=== PATIENT | female | born 1990 | race Caucasian/White ===

== ENCOUNTER → 2020-02-15 | Outpatient (CLI) | payer BC, OTHER | END | disposition home or self-care (01) | LOC: LABWHC1 14:25 | PROVIDERS: ATTEND Obstetrics & Gynecology | DX: Z11.59 Encounter for screening for other viral diseases (principal) ==

== ENCOUNTER 2020-02-17 06:00 | Inpatient (IN) | payer BC, OTHER ==
[2020-02-17] MEDS ORDERED: CARBOPROST TROMETHAMINE 250 MCG/ML 1 ML AMP IM PRN (06:09)
[2020-02-17] MEDS ORDERED: TERBUTALINE 1 MG/ML VIAL SQ PRN (06:09)
[2020-02-17] MEDS ORDERED: OXYTOCIN 10 UNIT/ML 1 ML VIAL IM PRN (06:09)
[2020-02-17] MEDS ORDERED: METHYLERGONOVINE 0.2 MG/ML 1 ML AMP IM PRN (06:09)
[2020-02-17] MEDS ORDERED: OXYTOCIN 30 UNITS/500 ML NS 30 UNIT in SALINE 1 500ML.BAG IV SCH (06:15)
[2020-02-17] MEDS: LACTATED RINGERS 1,000 ML IV SCH ×2 (06:33→11:07)
[2020-02-17 06:43] LABS: Basophils % (A) 0 %; Eosinophils # (A) 0.1 k/uL (0-0.7); Eosinophils % (A) 2 %; HCT 32.7 % (34.0-46.0); HGB 11.2 gm/dL (11.4-16.0); Lymphocytes # (A) 1.5 k/uL (1.0-4.8); Lymphocytes % (A) 21 %; MCH 28.3 pg (25.0-35.0); MCHC 34.3 g/dL (31.0-37.0); MCV 82.6 fL (80.0-100.0); Mean Platelet Volume 7.5; Monocytes # (A) 0.3 k/uL (0-1.0); Monocytes % (A) 4 %; Neutrophils # (A) 4.9 k/uL (1.3-7.7); Neutrophils % (A) 71 %; Platelet Count 232 k/uL (150-450); RBC 3.96 m/uL (3.80-5.40); RDW 14.4 % (11.5-15.5); WBC 6.9 k/uL (3.8-10.6)
[2020-02-17] MEDS: BUTORPHANOL 1 MG/ML 1 ML VIAL IV PRN ×2 (11:00→13:15)
--- NOTE | 2020-02-17 15:54 | P.HPOB ---
History of Present Illness H&P Date: 02/17/20 Chief Complaint: at 39 weeks gestation This is a 29-year-old 3 para 2002 woman with an estimated due date of 02/23/2020 who presents at 39+ weeks gestation for elective induction of labor. Her has been uncomplicated. She has been monitoring home blood pressures however has not had any significant -induced hypertension. She does have a history of PIH in previous pregnancies. She was followed early in the for a low-lying placenta which did resolve by 32 weeks. She's had no vaginal bleeding. On admission her cervix is 3 cm dilated, 50% effaced and the vertex is in the -4 station anterior behind the pubic symphysis. Next On obstetric history: 2013 and term of 7 lbs. 0 oz. male, PIH. 2014 term of 8 lbs. 13 oz. male infant uncomplicated. Laboratory data blood type B positive, antibody screen negative, rubella immune, VDRL nonreactive, hep Shy surface antigen negative, HIV negative, gonorrhea and clinic cultures negative, glucose tones testing within normal limits, hemoglobin A1c 4.3, group B strep negative. Review of Systems All systems: negative Past Medical History Past Medical History: No Reported History Additional Past Medical History / Comment(s): HTN "a few years ago"- resolved, not currently medicated History of Any Multi-Drug Resistant Organisms: None Reported Past Surgical History: Adenoidectomy Past Anesthesia/Blood Transfusion Reactions: No Reported Reaction Past Psychological History: No Psychological Hx Reported Smoking Status: Never smoker Past Alcohol Use History: None Reported Past Drug Use History: None Reported - Past Family History Father Family Medical History: Hypertension Mother Family Medical History: Hypertension Additional Family Medical History / Comment(s): type 2 diabetes Medications and Allergies Home Medications Medication Instructions Recorded Confirmed Type Pnv,Calcium 72/Iron/Folic Acid 1 tab PO DAILY 02/17/20 02/17/20 History [ Plus Tablet] Allergies Allergy/AdvReac Type Severity Reaction Status Date / Time No Known Allergies Allergy Verified 02/17/20 06:06 Exam Vital Signs Temp Pulse Resp BP Pulse Ox 02/17/20 07:30 97.0 F L 86 16 140/80 99 Intake and Output 02/17/20 02/17/20 02/17/20 06:59 14:59 22:59 Other: # Voids 1 Weight 110.677 kg 110.677 kg On admission the cervix is 3 cm dilated 50% effaced and was remarkably anterior on and behind the pubic symphysis. Artificial rupture of membranes is achieved by use of the scalp electrode and clear fluid is noted. She is irregularly merari on admission and heart tones are category 1. Results Result Diagrams: 02/17/20 06:30 Abnormal Lab Results - Last 24 Hours (Table) 02/17/20 Range/Units 06:30 Hgb 11.2 L (11.4-16.0) gm/dL Hct 32.7 L (34.0-46.0) % Assessment and Plan (1) 39 weeks gestation of Current Visit: Yes Status: Acute Code(s): Z3A.39 - 39 WEEKS GESTATION OF SNOMED Code(s): 80948674 (2) Obesity Current Visit: No Status: Acute Code(s): E66.9 - OBESITY, UNSPECIFIED SNOMED Code(s): 269915707 Plan: 29-year-old 3 para 2 woman admitted at 39+ weeks gestation on for induction of labor with a favorable cervix. has been uncomplicated. She will undergo Pitocin induction of labor with artificial rupture of membranes. She is group B strep negative and Rh+. She may have an epidural anesthetic upon request in active labor.
[2020-02-17] MEDS ORDERED: diphenhydrAMINE 50 MG/ML 1 ML VIAL IVP PRN ×2 (15:57)
[2020-02-17] MEDS ORDERED: diphenhydrAMINE 50 MG CAP PO PRN (15:57)
[2020-02-17] MEDS ORDERED: diphenhydrAMINE 25 MG CAP PO PRN (15:57)
[2020-02-17] MEDS ORDERED: BENZOCAINE/MENTHOL SPRAY 1 GM/SPRAY AEROSOL TOPICAL PRN (15:57)
[2020-02-17] MEDS ORDERED: SIMETHICONE 80 MG CHEWABLE PO PRN (15:57)
[2020-02-17] MEDS ORDERED: WITCH HAZEL 1 EACH MED..PAD TOPICAL PRN (15:57)
[2020-02-17] MEDS ORDERED: LANOLIN CREAM 5 GM TUBE TOPICAL PRN (15:57)
[2020-02-17] MEDS ORDERED: HYDROCORTISONE 2.5% RECTAL CREAM 30 GM TUBE RECTAL PRN (15:57)
[2020-02-17] MEDS ORDERED: ZOLPIDEM 5 MG TAB PO PRN (15:57)
[2020-02-17] MEDS ORDERED: ACETAMINOPHEN TAB 325 MG TAB PO PRN (15:57)
--- NOTE | 2020-02-17 15:57 | P.PROBDLV ---
Vaginal Delivery Note - . Vaginal Delivery Note: Findings: Female in the vertex left occiput anterior position with Apgars of 7 at 1 minute and 9 at 5 minutes weighing 7 lbs. 1 oz. Second-degree midline episiotomy. EBL proximally 500 mL's. Delivery summary: This is a 29-year-old 3 para 2 woman who presented at 39+ weeks gestation for elective induction of labor at term. Following admission she underwent a Pitocin induction of labor with artificial rupture of membranes. She was 3 cm dilated on admission at approximately 7:30 AM. She did enter active labor and when she reached 5 cm dilated she requested an epidural anesthetic. Unfortunately after multiple times on epidural could not be adeq uately placed. The patient then received Stadol for analgesia. She reached complete cervical dilation by approximately 1520. She had deep variable heart rate decelerations on entering into the second stage. She pushed with excellent maternal effort. She had a terminal bradycardia down to the 70 bpm. The perineum was infused with lidocaine and a midline episiotomy was cut this facilitated delivery of the vertex with the next maternal effort. A nuchal cord 1 was reduced. The anterior followed by the posterior shoulders were then delivered onto the field. On limits had spontaneous cry upon delivery. Nose and mouth were bulb suctioned. was placed on the maternal abdomen where the cord was clamped and cut. Apgars were 7 at 1 minute and 9 at 5 minutes and weight was 7 lbs. 1 oz. The patient did have some on uterine atony and bleeding well waiting for the placenta to deliver. Active management of the third stage was undertaken and Pitocin was infused. The placenta was delivered after an approximately 5 minute third stage of labor. Uterus was massaged and the low uterine segment was cleared of clot and debris. Good uterine tone was then noted. The perineum was inspected and a irregularly-shaped second-degree midline episiotomy was noted. This was repaired with 3-0 Vicryl suture after infusion of the laceration with more lidocaine. The rest of the vagina and cervix were inspected and no further lacerations were noted. The uterus was massaged and she did have some mild atony that again did resolve with bimanual massage. Total EBL is approximate 500 mL's. Both mother and were doing well post delivery in the room.
[2020-02-17] MEDS: LIDOCAINE 0.5% (PF) 5 MG/ML (50 ML SDV) SQ PRN ×2 (15:58→15:59)
[2020-02-17] MEDS ORDERED: OXYTOCIN 20 UNITS/1000 ML NS 1,000 ML IV SCH (16:00)
[2020-02-17] MEDS: IBUPROFEN 600 MG TAB PO PRN (19:09)
[2020-02-17] MEDS: SENNOSIDES-DOCUSATE SODIUM 1 EACH TAB PO SCH (22:07)
[2020-02-18 07:04] LABS: Basophils % (A) 0 %; Eosinophils # (A) 0.1 k/uL (0-0.7); Eosinophils % (A) 1 %; HCT 29.2 % (34.0-46.0); HGB 9.8 gm/dL (11.4-16.0); Lymphocytes # (A) 1.2 k/uL (1.0-4.8); Lymphocytes % (A) 14 %; MCH 28.4 pg (25.0-35.0); MCHC 33.4 g/dL (31.0-37.0); MCV 84.9 fL (80.0-100.0); Mean Platelet Volume 7.4; Monocytes # (A) 0.3 k/uL (0-1.0); Monocytes % (A) 4 %; Neutrophils # (A) 6.9 k/uL (1.3-7.7); Neutrophils % (A) 80 %; Platelet Count 191 k/uL (150-450); RBC 3.44 m/uL (3.80-5.40); RDW 14.3 % (11.5-15.5); WBC 8.6 k/uL (3.8-10.6)
[2020-02-18] MEDS: IBUPROFEN 600 MG TAB PO PRN (07:25)
--- NOTE | 2020-02-18 08:43 | P.DS ---
Providers Date of admission: 02/17/20 06:00 Expected date of discharge: 02/18/20 Attending physician: Jamaica Magaña Primary care physician: Stated None - Discharge Diagnosis(es) (1) 39 weeks gestation of Current Visit: Yes Status: Acute (2) Obesity Current Visit: No Status: Acute (3) Normal spontaneous vaginal delivery Current Visit: No Status: Acute (4) Perineal laceration with delivery, second degree Current Visit: No Status: Acute (5) Nuchal cord Current Visit: Yes Status: Acute Hospital Course: This is a 29-year-old 3 now para 3 woman who is admitted at 39+ weeks gestation for elective induction of labor with a favorable cervix. Following admission she underwent Pitocin induction of labor with artificial rupture of membranes. She had failed attempts at epidural anesthetic placement but did receive Stadol analgesia during her labor. She went on to deliver a liveborn female infant weighing 7 lbs. 1 oz. with Apgars of 7 at 1 minute and 9 at 5 minutes. She had some moderate uterine atony following delivery that was managed with bimanual uterine massage and Pitocin intravenously. This did resolve. Her blood loss is approximately 500 mL's. Her vital signs remained stable throughout the her postdelivery timeframe. By the morning of day #1 her hemoglobin was 9.8 and vital signs were stable. She had minimal lochia and her uterus was firm. She was bottlefeeding without difficulty, ambulating and voiding without difficulty. She was therefore discharged home with routine instructions for care and follow-up. Procedures: Normal spontaneous vaginal delivery Repair of second-degree perineal laceration Patient Condition at Discharge: Good Plan - Discharge Summary New Discharge Prescriptions: No Action Pnv,Calcium 72/Iron/Folic Acid [ Plus Tablet] 1 tab PO DAILY Discharge Medication List Pnv,Calcium 72/Iron/Folic Acid [ Plus Tablet] 1 tab PO DAILY 02/17/20 [History] Follow up Appointment(s)/Referral(s): Jamaica Magaña MD [STAFF PHYSICIAN] - 6 Weeks Activity/Diet/Wound Care/Special Instructions: Follow-up in the office in 6 weeks . Call with any concerning signs or symptoms including heavy vaginal bleeding, severe abdominal pain, fever greater than 101, swelling or redness of the lower extremities, foul vaginal discharge, or signs of depression. Nothing in the vagina for 6 weeks after delivery, specifically no intercourse. Discharge Disposition: HOME SELF-CARE
[2020-02-18] MEDS: SENNOSIDES-DOCUSATE SODIUM 1 EACH TAB PO SCH ×2 (17:19→19:57)
--- NOTE | 2020-02-19 08:05 | P.PNOBGVD ---
Subjective - Subjective Principal diagnosis: PPD 2 Interval history: Patient did well overnight. Infant required extra monitoring secondary to an elevated bilirubin level. Patient states she is involuting and voiding without difficulty. She is tolerating a regular diet without nausea or vomiting. She states her lochia is moderate. Patient does have a history of elevated blood pressures with prior pregnancies blood pressures this morning 140s over 80s., With recheck being 130s over 80s. She denies any symptoms of preeclampsia. Patient reports: Reports appetite normal, Reports voiding normally, Reports pain well controlled, Reports ambulating normally [place]: doing well Objective - Latest Vital Signs Latest vital signs: Vital Signs Temp Pulse Resp BP Pulse Ox 02/19/20 00:39 97.7 F 85 14 132/70 99 02/18/20 17:45 98.1 F 94 18 130/80 99 - Exam Extremities: Present: edema Abdomen: Present: normal appearance, soft Uterus: Present: normal, firm Assessment and Plan (1) 39 weeks gestation of Current Visit: Yes Status: Acute Code(s): Z3A.39 - 39 WEEKS GESTATION OF SNOMED Code(s): 83155939 (2) Normal spontaneous vaginal delivery Current Visit: No Status: Acute Code(s): O80 - ENCOUNTER FOR FULL-TERM UNCOMPLICATED DELIVERY SNOMED Code(s): 98542372 Plan: Will plan discharge this morning, with follow-up with Dr. Magaña in 1 week for blood pressure check. Routine instructions are given.
[2020-02-19 08:11] VITALS: BP 130/80; PULSE 91; RESP 18; TEMP 98
== END 2020-02-19 11:12 | disposition home or self-care (01) | DRG 807 ==
LOC: 4FBP 06:00
PROVIDERS: ADMIT Obstetrics & Gynecology; ATTEND Obstetrics & Gynecology
PROC: 10E0XZZ Delivery of Products of Conception, External Approach (ICD-10-PCS; principal; 2020-02-17)
PROC: 10907ZC Drainage of Amniotic Fluid, Therapeutic from Products of Conception, Via Natural or Artificial Opening (ICD-10-PCS; principal; 2020-02-17)
PROC: 0KQM0ZZ Repair Perineum Muscle, Open Approach (ICD-10-PCS; principal; 2020-02-17)
PROC: 0W8NXZZ Division of Female Perineum, External Approach (ICD-10-PCS; principal; 2020-02-17)
PROC: 3E033VJ Introduction of Other Hormone into Peripheral Vein, Percutaneous Approach (ICD-10-PCS; principal; 2020-02-17)
DX: O13.4 Gestational [pregnancy-induced] hypertension without significant proteinuria, complicating childbirth (principal); Z37.0 Single live birth; O99.214 Obesity complicating childbirth; E66.9 Obesity, unspecified; O69.81X0 Labor and delivery complicated by cord around neck, without compression, not applicable or unspecified; O70.1 Second degree perineal laceration during delivery; O72.1 Other immediate postpartum hemorrhage; O76 Abnormality in fetal heart rate and rhythm complicating labor and delivery; O99.89 Other specified diseases and conditions complicating pregnancy, childbirth and the puerperium; R00.1 Bradycardia, unspecified; Z3A.39 39 weeks gestation of pregnancy; Z82.49 Family history of ischemic heart disease and other diseases of the circulatory system; Z83.3 Family history of diabetes mellitus
CPT/HCPCS: 85025; 86850; 86900; 86901

== ENCOUNTER 2020-03-19 20:16 | Inpatient (IN) | payer BC, OTHER ==
--- NOTE | 2020-03-19 20:47 | ED ---
Back Pain HPI - General Chief Complaint: Back Pain/Injury Stated Complaint: L Back Pain Time Seen by Provider: 03/19/20 20:39 Source: patient Limitations: no limitations - History of Present Illness Initial Comments: Patient is a 29-year-old female presenting to the emergency department with a chief complaint of back pain. Patient stated the back pain started 3 days ago in the right paraspinal thoracic region and has since migrated to the opposite side. Patient states the pain is exacerbated when taking full, deep breaths. Patient reports she was discharged from a hospital exactly one month ago after given . Patient also reports the pain is exacerbated with left and right rotation. Denies any chest pain was states she does get winded due to pain. Reports taking Tylenol and Motrin for the pain which has been able to keep either control. Denies any radiation of the pain. Denies any night sweats or chills. Denies previous history of DVT or PE. - Related Data Home Medications Medication Instructions Recorded Confirmed Acetaminophen [Tylenol Extra 1,000 mg PO Q8H PRN 03/19/20 03/19/20 Strength] Ibuprofen [Motrin Ib] 400 mg PO Q8H PRN 03/19/20 03/19/20 Labetalol HCl 100 mg PO Q8H PRN 03/19/20 03/19/20 Allergies Allergy/AdvReac Type Severity Reaction Status Date / Time No Known Allergies Allergy Verified 03/19/20 22:52 Review of Systems ROS Statement: Those systems with pertinent positive or pertinent negative responses have been documented in the HPI. ROS Other: All systems not noted in ROS Statement are negative. Past Medical History Past Medical History: No Reported History Additional Past Medical History / Comment(s): HTN "a few years ago"- resolved, not currently medicated History of Any Multi-Drug Resistant Organisms: None Reported Past Surgical History: Adenoidectomy Past Anesthesia/Blood Transfusion Reactions: No Reported Reaction Past Psychological History: No Psychological Hx Reported Smoking Status: Never smoker Past Alcohol Use History: Occasional Past Drug Use History: None Reported - Past Family History Father Family Medical History: Hypertension Mother Family Medical History: Hypertension Additional Family Medical History / Comment(s): type 2 diabetes General Exam Limitations: no limitations General appearance: alert, in no apparent distress Head exam: Present: atraumatic, normocephalic, normal inspection Eye exam: Present: normal appearance, PERRL, EOMI Pupils: Present: normal accommodation ENT exam: Present: normal exam, normal oropharynx, mucous membranes moist Neck exam: Present: normal inspection, full ROM. Absent: tenderness Respiratory exam: Present: normal lung sounds bilaterally. Absent: respiratory distress, wheezes, chest wall tenderness Cardiovascular Exam: Present: regular rate, normal rhythm, normal heart sounds GI/Abdominal exam: Present: soft. Absent: distended, tenderness, guarding Extremities exam: Present: normal inspection, full ROM, normal capillary refill, other Back exam: Present: normal inspection, full ROM, CVA tenderness (L). Absent: tenderness Neurological exam: Present: alert, oriented X3, normal gait Psychiatric exam: Present: normal affect, normal mood Skin exam: Present: warm, dry, intact, normal color Course Vital Signs 03/19/20 03/19/20 20:35 22:00 Temperature 97.8 F 96.9 F L Pulse Rate 115 H 98 Respiratory 20 18 Rate Blood Pressure 164/93 140/82 O2 Sat by Pulse 100 100 Oximetry Medical Decision Making - Medical Decision Making Patient is a 29-year-old female presenting to emergency Department with chief complaint of back pain. On exam patient appears to have some left thoracic back pain. This appears to pleuritic in nature. Patient has elevated d-dimer. CTA reveals multiple, bilateral lower lobe emboli. Bilateral pneumonia also noted. Covid testing pending. Patient will be admitted for further medical management. UA also appears to be positive for urinary tract infection. Patient started on high intensity heparin. Patient will be admitted for further medical management. Case discussed with physician, Dr Vargas Admitting physician is - Lab Data Result diagrams: 03/19/20 22:36 03/19/20 22:36 Lab Results 03/19/20 03/19/20 03/19/20 Range/Units 21:10 21:10 21:22 WBC (3.8-10.6) k/uL RBC (3.80-5.40) m/uL Hgb (11.4-16.0) gm/dL Hct (34.0-46.0) % MCV (80.0-100.0) fL MCH (25.0-35.0) pg MCHC (31.0-37.0) g/dL RDW (11.5-15.5) % Plt Count (150-450) k/uL Neutrophils % % Lymphocytes % % Monocytes % % Eosinophils % % Basophils % % Neutrophils # (1.3-7.7) k/uL Lymphocytes # (1.0-4.8) k/uL Monocytes # (0-1.0) k/uL Eosinophils # (0-0.7) k/uL Basophils # (0-0.2) k/uL D-Dimer 3.74 H (<0.60) mg/L FEU Sodium (137-145) mmol/L Potassium (3.5-5.1) mmol/L Chloride (98-107) mmol/L Carbon Dioxide (22-30) mmol/L Anion Gap mmol/L BUN (7-17) mg/dL Creatinine (0.52-1.04) mg/dL Est GFR (CKD-EPI)AfAm (>60 ml/min/1.73 sqM) Est GFR (CKD-EPI)NonAf (>60 ml/min/1.73 sqM) Glucose (74-99) mg/dL Calcium (8.4-10.2) mg/dL Total Bilirubin (0.2-1.3) mg/dL AST (14-36) U/L ALT (4-34) U/L Alkaline Phosphatase (38-126) U/L Troponin I (0.000-0.034) ng/mL NT-Pro-B Natriuret Pep pg/mL Total Protein (6.3-8.2) g/dL Albumin (3.5-5.0) g/dL Urine Color Yellow Urine Appearance Cloudy H (Clear) Urine pH 6.0 (5.0-8.0) Ur Specific [place] 1.036 H (1.001-1.035) Urine Protein 1+ H (Negative) Urine Glucose (UA) Negative (Negative) Urine Ketones Negative (Negative) Urine Blood Trace H (Negative) Urine Nitrite Negative (Negative) Urine Bilirubin Negative (Negative) Urine Urobilinogen <2.0 (<2.0) mg/dL Ur Leukocyte Esterase Large H (Negative) Urine RBC 8 H (0-5) /hpf Urine WBC 50 H (0-5) /hpf Ur Squamous Epith Cells 9 H (0-4) /hpf Urine Bacteria Rare H (None) /hpf Urine Mucus Few H (None) /hpf Urine HCG, Qual Not Detected (Not Detectd) 03/19/20 03/19/20 03/19/20 Range/Units 22:34 22:36 22:36 WBC 9.5 (3.8-10.6) k/uL RBC 4.51 (3.80-5.40) m/uL Hgb 11.7 (11.4-16.0) gm/dL Hct 37.1 (34.0-46.0) % MCV 82.1 (80.0-100.0) fL MCH 26.0 (25.0-35.0) pg MCHC 31.6 (31.0-37.0) g/dL RDW 14.6 (11.5-15.5) % Plt Count 272 (150-450) k/uL Neutrophils % 73 % Lymphocytes % 17 % Monocytes % 4 % Eosinophils % 5 % Basophils % 0 % Neutrophils # 7.0 (1.3-7.7) k/uL Lymphocytes # 1.6 (1.0-4.8) k/uL Monocytes # 0.4 (0-1.0) k/uL Eosinophils # 0.4 (0-0.7) k/uL Basophils # 0.0 (0-0.2) k/uL D-Dimer (<0.60) mg/L FEU Sodium 140 (137-145) mmol/L Potassium 3.5 (3.5-5.1) mmol/L Chloride 102 (98-107) mmol/L Carbon Dioxide 23 (22-30) mmol/L Anion Gap 15 mmol/L BUN 12 (7-17) mg/dL Creatinine 0.65 (0.52-1.04) mg/dL Est GFR (CKD-EPI)AfAm >90 (>60 ml/min/1.73 sqM) Est GFR (CKD-EPI)NonAf >90 (>60 ml/min/1.73 sqM) Glucose 94 (74-99) mg/dL Calcium 9.5 (8.4-10.2) mg/dL Total Bilirubin 0.6 (0.2-1.3) mg/dL AST 42 H (14-36) U/L ALT 42 H (4-34) U/L Alkaline Phosphatase 194 H (38-126) U/L Troponin I (0.000-0.034) ng/mL NT-Pro-B Natriuret Pep 61 pg/mL Total Protein 8.1 (6.3-8.2) g/dL Albumin 4.8 (3.5-5.0) g/dL Urine Color Urine Appearance (Clear) Urine pH (5.0-8.0) Ur Specific [place] (1.001-1.035) Urine Protein (Negative) Urine Glucose (UA) (Negative) Urine Ketones (Negative) Urine Blood (Negative) Urine Nitrite (Negative) Urine Bilirubin (Negative) Urine Urobilinogen (<2.0) mg/dL Ur Leukocyte Esterase (Negative) Urine RBC (0-5) /hpf Urine WBC (0-5) /hpf Ur Squamous Epith Cells (0-4) /hpf Urine Bacteria (None) /hpf Urine Mucus (None) /hpf Urine HCG, Qual (Not Detectd) 03/19/20 Range/Units 22:36 WBC (3.8-10.6) k/uL RBC (3.80-5.40) m/uL Hgb (11.4-16.0) gm/dL Hct (34.0-46.0) % MCV (80.0-100.0) fL MCH (25.0-35.0) pg MCHC (31.0-37.0) g/dL RDW (11.5-15.5) % Plt Count (150-450) k/uL Neutrophils % % Lymphocytes % % Monocytes % % Eosinophils % % Basophils % % Neutrophils # (1.3-7.7) k/uL Lymphocytes # (1.0-4.8) k/uL Monocytes # (0-1.0) k/uL Eosinophils # (0-0.7) k/uL Basophils # (0-0.2) k/uL D-Dimer (<0.60) mg/L FEU Sodium (137-145) mmol/L Potassium (3.5-5.1) mmol/L Chloride (98-107) mmol/L Carbon Dioxide (22-30) mmol/L Anion Gap mmol/L BUN (7-17) mg/dL Creatinine (0.52-1.04) mg/dL Est GFR (CKD-EPI)AfAm (>60 ml/min/1.73 sqM) Est GFR (CKD-EPI)NonAf (>60 ml/min/1.73 sqM) Glucose (74-99) mg/dL Calcium (8.4-10.2) mg/dL Total Bilirubin (0.2-1.3) mg/dL AST (14-36) U/L ALT (4-34) U/L Alkaline Phosphatase (38-126) U/L Troponin I <0.012 (0.000-0.034) ng/mL NT-Pro-B Natriuret Pep pg/mL Total Protein (6.3-8.2) g/dL Albumin (3.5-5.0) g/dL Urine Color Urine Appearance (Clear) Urine pH (5.0-8.0) Ur Specific [place] (1.001-1.035) Urine Protein (Negative) Urine Glucose (UA) (Negative) Urine Ketones (Negative) Urine Blood (Negative) Urine Nitrite (Negative) Urine Bilirubin (Negative) Urine Urobilinogen (<2.0) mg/dL Ur Leukocyte Esterase (Negative) Urine RBC (0-5) /hpf Urine WBC (0-5) /hpf Ur Squamous Epith Cells (0-4) /hpf Urine Bacteria (None) /hpf Urine Mucus (None) /hpf Urine HCG, Qual (Not Detectd) - EKG Data EKG Comments: Sinus rhythm him a no ST or T-wave changes. Ventricular rate 97, SD 188, QRS 94, QTC 436. Disposition Clinical Impression: Pulmonary embolism, bilateral, Bilateral pneumonia Disposition: ADMITTED IP TO THIS HOSP Condition: Good Additional Instructions: Patient to be admitted Is patient prescribed a controlled substance at d/c from ED?: No Referrals: None,Stated [Primary Care Provider] - 1-2 days Time of Disposition: 23:27
[2020-03-19 21:43] LABS: Appearance,Urine Cloudy (Clear); Bacteria,Urine Rare /hpf; Bilirubin,Urine Negative (Negative); Blood,Urine Trace (Negative); Color,Urine Yellow; Glucose,Urine (UA) Negative (Negative); Ketones,Urine Negative (Negative); Leukocyte Esterase,Urine Large (Negative); Mucus,Urine Few /hpf; Nitrite,Urine Negative (Negative); Protein,Urine 1+ (Negative); RBC,Urine 8 /hpf (0-5); Specific Gravity,Urine 1.036 (1.001-1.035); Squamous Epithelial Cell,Urine 9 /hpf (0-4); Urobilinogen,Urine <2.0 mg/dL (<2.0); WBC,Urine 50 /hpf (0-5)
--- NOTE | 2020-03-19 22:37 | CT ---
EXAMINATION TYPE: CT chest angio for PE DATE OF EXAM: 03/19/2020 COMPARISON: None HISTORY: Elevated D-dimer and back pain. CT DLP: 445.2 mGycm Automated exposure control for dose reduction was used. CONTRAST: Performed with IV Contrast, patient injected with 71ml mL of Isovue 370. There are 3-D post processed images. There is some patchy nodular infiltrate at the posterior lung bases. There is no pleural effusion. Th ere is no pericardial effusion. There is no filling defects in the lower lobe pulmonary arteries bila terally. There is no mediastinal adenopathy. There are no hilar masses. The thoracic vertebra appear intact. Bony thorax is intact. The upper abdominal soft tissues are inta ct. Abdominal and thoracic aorta appear intact. There is no aneurysm or dissection. IMPRESSION: Multiple bilateral lower lobe pulmonary emboli. Bilateral lower lobe patchy pneumonia and atelectasis appears new compared to abdomen CT scan of 11/03. This exam was discussed with Manjit at 10:30 PM.
[2020-03-19 22:48] LABS: Basophils % (A) 0 %; Eosinophils # (A) 0.4 k/uL (0-0.7); Eosinophils % (A) 5 %; HCT 37.1 % (34.0-46.0); HGB 11.7 gm/dL (11.4-16.0); Lymphocytes # (A) 1.6 k/uL (1.0-4.8); Lymphocytes % (A) 17 %; MCHC 31.6 g/dL (31.0-37.0); MCV 82.1 fL (80.0-100.0); Mean Platelet Volume 7.4; Monocytes # (A) 0.4 k/uL (0-1.0); Monocytes % (A) 4 %; Neutrophils % (A) 73 %; Platelet Count 272 k/uL (150-450); RBC 4.51 m/uL (3.80-5.40); RDW 14.6 % (11.5-15.5); WBC 9.5 k/uL (3.8-10.6)
[2020-03-19 23:06] LABS: ALT 42 U/L (4-34); AST 42 U/L (14-36); African American GFR (CKD) >90 (>60 ml/min/1.73 sqM); Albumin 4.8 g/dL (3.5-5.0); Alkaline Phosphatase 194 U/L (38-126); Anion Gap 15 mmol/L; Blood Urea Nitrogen 12 mg/dL (7-17); Calcium 9.5 mg/dL (8.4-10.2); Carbon Dioxide 23 mmol/L (22-30); Chloride 102 mmol/L (98-107); Glucose 94 mg/dL (74-99); Non-African American GFR(CKD) >90 (>60 ml/min/1.73 sqM); Potassium 3.5 mmol/L (3.5-5.1); Sodium 140 mmol/L (137-145); Total Bilirubin 0.6 mg/dL (0.2-1.3); Total Protein 8.1 g/dL (6.3-8.2)
[2020-03-19] MEDS ORDERED: HEPARIN SODIUM,PORCINE 5,000 UNIT/ML 1 ML VIAL IV PRN (23:23)
[2020-03-19] MEDS ORDERED: HEPARIN SODIUM,PORCINE 10,000 UNIT/ML 1 ML VIAL IV ONE (23:23)
[2020-03-19 23:27] LABS: INR 0.9 (<1.2); Partial Thromboplastin Time 27.5 sec (22.0-30.0); Prothrombin Time 9.7 sec (9.0-12.0)
[2020-03-19] MEDS ORDERED: ACETAMINOPHEN TAB 325 MG TAB PO PRN (23:28)
[2020-03-19] MEDS ORDERED: ONDANSETRON 4 MG/2 ML VIAL IVP PRN (23:28)
[2020-03-19] MEDS ORDERED: LORazepam 2 MG/ML INJ IV PRN (23:28)
[2020-03-19] MEDS ORDERED: NALOXONE 0.4 MG/ML 1 ML VIAL IV PRN (23:28)
[2020-03-19] MEDS: HEPARIN SOD,PORK IN 0.45% NACL 25,000 UNIT in 0.45% NACL 1 250ML.BAG IV SCH (23:45)
[2020-03-19] MEDS: MORPHINE SULFATE 4 MG/ML SYRINGE IV PRN (23:54)
[2020-03-20 01:44] LABS: Glucose,Whole Blood 104 mg/dL (75-99)
[2020-03-20 05:38] LABS: Basophils % (A) 0 %; Eosinophils # (A) 0.4 k/uL (0-0.7); Eosinophils % (A) 4 %; HCT 31.7 % (34.0-46.0); HGB 10.4 gm/dL (11.4-16.0); Hypochromasia Slight; Lymphocytes # (A) 1.4 k/uL (1.0-4.8); Lymphocytes % (A) 16 %; MCH 27.2 pg (25.0-35.0); MCHC 32.8 g/dL (31.0-37.0); MCV 82.8 fL (80.0-100.0); Mean Platelet Volume 7.1; Monocytes # (A) 0.4 k/uL (0-1.0); Monocytes % (A) 4 %; Neutrophils # (A) 6.5 k/uL (1.3-7.7); Neutrophils % (A) 73 %; Platelet Count 234 k/uL (150-450); RBC 3.83 m/uL (3.80-5.40); RDW 14.3 % (11.5-15.5); WBC 8.9 k/uL (3.8-10.6)
[2020-03-20 05:55] LABS: African American GFR (CKD) >90 (>60 ml/min/1.73 sqM); Anion Gap 6 mmol/L; Blood Urea Nitrogen 9 mg/dL (7-17); Calcium 8.9 mg/dL (8.4-10.2); Carbon Dioxide 26 mmol/L (22-30); Chloride 106 mmol/L (98-107); Glucose 106 mg/dL (74-99); Non-African American GFR(CKD) >90 (>60 ml/min/1.73 sqM); Potassium 3.8 mmol/L (3.5-5.1); Sodium 138 mmol/L (137-145)
[2020-03-20] MEDS: MORPHINE SULFATE 4 MG/ML SYRINGE IV PRN ×3 (06:00→15:17)
[2020-03-20] MEDS: HEPARIN SOD,PORK IN 0.45% NACL 25,000 UNIT in 0.45% NACL 1 250ML.BAG IV SCH (11:23)
[2020-03-20 11:31] VITALS: BMI 39.9
--- NOTE | 2020-03-20 15:09 | P.HPIM ---
History of Present Illness Patient is a pleasant 29-year-old female came in with the comments of back pain upon further questioning her back pain is pleuritic in the upper back area right severe sharp pain. Patient had a d-dimer which was elevated patient had a CAT scan because of that and patient is found to have bilateral pulmonary emboli. Patient's troponins are negative patient denied any pain in the legs. Patient had a recent the normal vaginal delivery about 3 days ago. Patient denied any prolonged hospitalization. Patient is presently not breast-feeding. Patient is still the bit short of breath upon exertion still be tachycardic. Patient still has pleuritic back pain chest pain. Review of Systems REVIEW OF SYSTEMS: CONSTITUTIONAL: No fever, no malaise, no fatigue. HEENT: No recent visual problems or hearing problems. Denied any sore throat. CARDIOVASCULAR: No chest pain, orthopnea, PND, no palpitations, no syncope. PULMONARY as mentioned in HPI GASTROINTESTINAL: No diarrhea, no nausea, no vomiting, no abdominal pain. NEUROLOGICAL: No headaches, no weakness, no numbness. HEMATOLOGICAL: Denies any bleeding or petechiae. GENITOURINARY: Denies any burning micturition, frequency, or urgency. MUSCULOSKELETAL/RHEUMATOLOGICAL: Denies any joint pain, swelling, or any muscle pain. ENDOCRINE: Denies any polyuria or polydipsia. The rest of the 14-point review of systems is negative. Past Medical History Past Medical History: No Reported History Additional Past Medical History / Comment(s): HTN "a few years ago"- resolved, not currently medicated History of Any Multi-Drug Resistant Organisms: None Reported Past Surgical History: Adenoidectomy Past Anesthesia/Blood Transfusion Reactions: No Reported Reaction Past Psychological History: No Psychological Hx Reported Smoking Status: Never smoker Past Alcohol Use History: Occasional Past Drug Use History: None Reported - Past Family History Father Family Medical History: Hypertension Mother Family Medical History: Hypertension Additional Family Medical History / Comment(s): type 2 diabetes Medications and Allergies Home Medications Medication Instructions Recorded Confirmed Type Acetaminophen [Tylenol Extra 1,000 mg PO Q8H PRN 03/19/20 03/19/20 History Strength] Ibuprofen [Motrin Ib] 400 mg PO Q8H PRN 03/19/20 03/19/20 History Labetalol HCl 100 mg PO Q8H PRN 03/19/20 03/19/20 History Allergies Allergy/AdvReac Type Severity Reaction Status Date / Time No Known Allergies Allergy Verified 03/19/20 22:52 Physical Exam Vitals: Vital Signs Temp Pulse Pulse Resp BP BP Pulse Ox 03/20/20 14:00 107 H 38 H 123/82 97 03/20/20 12:00 99.6 F 105 H 31 H 130/81 97 03/20/20 10:00 107 H 38 H 133/82 97 03/20/20 08:00 99.8 F H 109 H 32 H 128/84 96 03/20/20 07:00 92 26 H 94 L 03/20/20 06:30 98 33 H 128/84 94 L 03/20/20 06:00 109 H 36 H 97 03/20/20 05:30 95 31 H 96 03/20/20 05:00 96 31 H 95 03/20/20 04:40 93 32 H 96 03/20/20 04:20 88 22 96 03/20/20 04:00 98.6 F 89 23 118/69 96 03/20/20 03:40 86 24 96 03/20/20 03:20 90 95 03/20/20 03:00 104 H 24 97 03/20/20 02:40 87 38 H 96 03/20/20 02:20 98 41 H 98 03/20/20 02:10 98 36 H 134/91 99 03/20/20 02:00 98.5 F 93 32 H 135/98 98 03/20/20 01:50 96 37 H 99 03/20/20 01:45 98 99 03/20/20 00:45 98.5 F 96 30 H 134/91 99 03/20/20 00:00 96.8 F L 94 16 128/77 99 03/19/20 22:00 96.9 F L 98 18 140/82 100 03/19/20 20:35 97.8 F 115 H 20 164/93 100 Intake and Output 03/19/20 03/20/20 03/20/20 22:59 06:59 14:59 Intake Total 200 221.313 Output Total 0 Balance 200 221.313 Intake: Intake, IV Titration 221.313 Amount Heparin Sod,Pork in 0.45% 221.313 NaCl 25,000 unit In 0.45 % NaCl 1 250ml.bag @ 18 UNITS/KG/HR 19.024 mls/hr IV .[id number] REBECCA Rx#: [id number] Oral 200 0 Output: Urine 0 Other: # Voids 1 1 Weight 105.687 kg 105.687 kg 105.687 kg PHYSICAL EXAMINATION: GENERAL: The patient is alert and oriented x3, not in any acute distress. Well developed, well nourished. HEENT: Pupils are round and equally reacting to light. EOMI. No scleral icterus. No conjunctival pallor. Normocephalic, atraumatic. No pharyngeal erythema. No thyromegaly. CARDIOVASCULAR: S1 and S2 present. No murmurs, rubs, or gallops. PULMONARY: Chest is clear to auscultation, no wheezing or crackles. ABDOMEN: Soft, nontender, nondistended, normoactive bowel sounds. No palpable organomegaly. MUSCULOSKELETAL: No joint swelling or deformity. EXTREMITIES: No cyanosis, clubbing, or pedal edema. NEUROLOGICAL: Gross neurological examination did not reveal any focal deficits. SKIN: No rashes. Results CBC & Chem 7: 03/20/20 05:07 03/20/20 05:07 Labs: Abnormal Lab Results - Last 24 Hours (Table) 03/19/20 03/19/20 03/19/20 Range/Units 21:10 21:22 22:36 Hgb (11.4-16.0) gm/dL Hct (34.0-46.0) % APTT (22.0-30.0) sec D-Dimer 3.74 H (<0.60) mg/L FEU Glucose (74-99) mg/dL POC Glucose (mg/dL) (75-99) mg/dL AST 42 H (14-36) U/L ALT 42 H (4-34) U/L Alkaline Phosphatase 194 H (38-126) U/L Urine Appearance Cloudy H (Clear) Ur Specific [place] 1.036 H (1.001-1.035) Urine Protein 1+ H (Negative) Urine Blood Trace H (Negative) Ur Leukocyte Esterase Large H (Negative) Urine RBC 8 H (0-5) /hpf Urine WBC 50 H (0-5) /hpf Ur Squamous Epith Cells 9 H (0-4) /hpf Urine Bacteria Rare H (None) /hpf Urine Mucus Few H (None) /hpf 03/20/20 03/20/20 03/20/20 Range/Units 01:43 05:07 05:07 Hgb 10.4 L (11.4-16.0) gm/dL Hct 31.7 L (34.0-46.0) % APTT 57.0 H (22.0-30.0) sec D-Dimer (<0.60) mg/L FEU Glucose (74-99) mg/dL POC Glucose (mg/dL) 104 H (75-99) mg/dL AST (14-36) U/L ALT (4-34) U/L Alkaline Phosphatase (38-126) U/L Urine Appearance (Clear) Ur Specific [place] (1.001-1.035) Urine Protein (Negative) Urine Blood (Negative) Ur Leukocyte Esterase (Negative) Urine RBC (0-5) /hpf Urine WBC (0-5) /hpf Ur Squamous Epith Cells (0-4) /hpf Urine Bacteria (None) /hpf Urine Mucus (None) /hpf 03/20/20 Range/Units 05:07 Hgb (11.4-16.0) gm/dL Hct (34.0-46.0) % APTT (22.0-30.0) sec D-Dimer (<0.60) mg/L FEU Glucose 106 H (74-99) mg/dL POC Glucose (mg/dL) (75-99) mg/dL AST (14-36) U/L ALT (4-34) U/L Alkaline Phosphatase (38-126) U/L Urine Appearance (Clear) Ur Specific [place] (1.001-1.035) Urine Protein (Negative) Urine Blood (Negative) Ur Leukocyte Esterase (Negative) Urine RBC (0-5) /hpf Urine WBC (0-5) /hpf Ur Squamous Epith Cells (0-4) /hpf Urine Bacteria (None) /hpf Urine Mucus (None) /hpf Thrombosis Risk Factor Assmnt - Choose All That Apply Any of the Below Risk Factors Present?: Yes Each Factor Represents 1 point: Obesity (BMI >25), or Other Risk Factors: No Thrombosis Risk Factor Assessment Total Risk Factor Score: 2 Thrombosis Risk Factor Assessment Level: Low Risk Assessment and Plan Plan: Bilateral pulmonary emboli: Patient is still symptomatic with this there is no evidence of left ventricle strain troponins are not elevated. The pulmonary emboli was precipitated by recent . Patient is not breast-feeding at this time. And no plans for breast-feeding patient will be started on Eliquis will discontinue IV heparin once she feels better symptomatically patient will be discharged on Eliquis which she need to continue for 3-6 months. -Mild and nonspecific elevation of liver enzymes no further intervention at this time -Tachycardia secondary to pulmonary embolism
[2020-03-20] MEDS: APIXABAN 5 MG TAB PO SCH (20:10)
[2020-03-21 04:47] VITALS: RESP 18
[2020-03-21 08:42] LABS: Basophils % (A) 0 %; Eosinophils # (A) 0.3 k/uL (0-0.7); Eosinophils % (A) 4 %; HCT 33.2 % (34.0-46.0); HGB 10.4 gm/dL (11.4-16.0); Lymphocytes # (A) 1.5 k/uL (1.0-4.8); Lymphocytes % (A) 22 %; MCH 25.8 pg (25.0-35.0); MCHC 31.3 g/dL (31.0-37.0); MCV 82.6 fL (80.0-100.0); Mean Platelet Volume 7.3; Monocytes # (A) 0.4 k/uL (0-1.0); Monocytes % (A) 6 %; Neutrophils # (A) 4.3 k/uL (1.3-7.7); Neutrophils % (A) 66 %; Platelet Count 238 k/uL (150-450); RBC 4.02 m/uL (3.80-5.40); RDW 14.6 % (11.5-15.5); WBC 6.5 k/uL (3.8-10.6)
[2020-03-21] MEDS: APIXABAN 5 MG TAB PO SCH (08:46)
[2020-03-21 08:55] LABS: African American GFR (CKD) >90 (>60 ml/min/1.73 sqM); Anion Gap 9 mmol/L; Blood Urea Nitrogen 10 mg/dL (7-17); Calcium 8.9 mg/dL (8.4-10.2); Carbon Dioxide 28 mmol/L (22-30); Chloride 104 mmol/L (98-107); Glucose 89 mg/dL (74-99); Non-African American GFR(CKD) >90 (>60 ml/min/1.73 sqM); Potassium 3.7 mmol/L (3.5-5.1); Sodium 141 mmol/L (137-145)
[2020-03-21 11:11] VITALS: BP 139/84; PULSE 100; TEMP 98.2
--- NOTE | 2020-03-21 11:11 | P.DS ---
Providers Date of admission: 03/19/20 23:20 Attending physician: Pushpa Osborn Primary care physician: Stated None Hospital Course: 29-year-old female came in with the comments of back pain upon further questioning her back pain is pleuritic in the upper back area right severe sharp pain. Patient had a d-dimer which was elevated patient had a CAT scan because of that and patient is found to have bilateral pulmonary emboli. Patient's troponins are negative patient denied any pain in the legs. Patient had a recent the normal vaginal delivery about 3 days ago. Patient denied any prolonged hospitalization. Patient is presently not breast-feeding. Patient is still the bit short of breath upon exertion still be tachycardic. Patient still has pleuritic back pain chest pain. 03/21/2020 Patient is feeling much better symptomatically, patient will be discharged today on Eliquis patient need to continue this medication for 3-6 months after which the anti-correlation can be discontinued and patient can be evaluated for procoagulant conditions. Patient is asked to avoid Motrin and she is on the Eliquis. PHYSICAL EXAMINATION: GENERAL: The patient is alert and oriented x3, not in any acute distress. Well developed, well nourished. HEENT: Pupils are round and equally reacting to light. EOMI. No scleral icterus. No conjunctival pallor. Normocephalic, atraumatic. No pharyngeal erythema. No thyromegaly. CARDIOVASCULAR: S1 and S2 present. No murmurs, rubs, or gallops. PULMONARY: Chest is clear to auscultation, no wheezing or crackles. ABDOMEN: Soft, nontender, nondistended, normoactive bowel sounds. No palpable organomegaly. MUSCULOSKELETAL: No joint swelling or deformity. EXTREMITIES: No cyanosis, clubbing, or pedal edema. NEUROLOGICAL: Gross neurological examination did not reveal any focal deficits. SKIN: No rashes. Please refer to my hpf further details patient has bilateral PE which is precipitated by recent Patient Condition at Discharge: Good Plan - Discharge Summary Discharge Rx Participant: Yes New Discharge Prescriptions: New Apixaban [Eliquis Starter Pack (for VTE)] 0 mg PO DIRECTED 30 Days #1 pack Discontinued Ibuprofen [Motrin Ib] 400 mg PO Q8H PRN PRN Reason: Pain Or Fever > 100.5 No Action Labetalol HCl 100 mg PO Q8H PRN PRN Reason: high blood pressure Acetaminophen [Tylenol Extra Strength] 1,000 mg PO Q8H PRN PRN Reason: Pain Or Fever > 100.5 Discharge Medication List Acetaminophen [Tylenol Extra Strength] 1,000 mg PO Q8H PRN 03/19/20 [History] Labetalol HCl 100 mg PO Q8H PRN 03/19/20 [History] Apixaban [Eliquis Starter Pack (for VTE)] 0 mg PO DIRECTED 30 Days #1 pack 03/21/20 [Rx] Follow up Appointment(s)/Referral(s): Venkatesh Salmeron MD [STAFF PHYSICIAN] - 3 Days (Patient has chosen him as her new PCP, please make first visit appointment. ) None,Stated [Primary Care Provider] - 1-2 days Activity/Diet/Wound Care/Special Instructions: Eliquis covered by insurance with $0 copay - script is filled and ready to be picked up at [facility] location Patient to be admitted Discharge Disposition: HOME SELF-CARE
== END 2020-03-21 13:15 | disposition home or self-care (01) | DRG 776 ==
LOC: EC 20:16 → 2SICU 23:20 → 3SCARD 03-20 14:44
PROVIDERS: ADMIT Hospitalist; ATTEND Hospitalist
DX: O88.23 Thromboembolism in the puerperium (principal); I10 Essential (primary) hypertension; Z11.59 Encounter for screening for other viral diseases; Z90.89 Acquired absence of other organs; Z82.49 Family history of ischemic heart disease and other diseases of the circulatory system; Z83.3 Family history of diabetes mellitus
CPT/HCPCS: 36415; 71275; 80048; 80053; 81001; 81025; 83880; 84484; 85025; 85379; 85610; 85730; 93005; 96365; 96366; 96375; 96376; 99285

== ENCOUNTER → 2020-08-01 | Outpatient (CLI) | payer BC, OTHER ==
[2020-08-02 00:25] LABS: Cardiolipin Ab IgG Interp NEGATIVE (NEGATIVE); Cardiolipin Ab IgM Interp NEGATIVE (NEGATIVE); Cardiolipin IgA Antibody <0.5 U/mL; Cardiolipin IgM Antibody 0.6 U/mL
[2020-08-02 09:31] LABS: Protein S Antigen 100 % (50 - 140)
[2020-08-02 12:01] LABS: APTT 46 Sec(s) (<43); APTT 1:1 Mix 39 Sec(s) (<43); Dilute Russell Viper Venom 43 Sec(s) (<44)
[2020-08-04 10:43] LABS: Protein C (Activity) >149 % (71-138)
[2020-08-04 11:43] LABS: INR 1.06 (0.90-1.11); Prothrombin Time 11.4 sec (9.9-11.9)
== END | disposition home or self-care (01) ==
LOC: LABWHC1 15:46
PROVIDERS: ATTEND Internal Medicine
DX: I26.99 Other pulmonary embolism without acute cor pulmonale (principal)
CPT/HCPCS: 36415; 85240; 85300; 85303; 85305; 85610; 85613; 85730; 85732; 86147

== ENCOUNTER → 2020-09-27 | Outpatient (CLI) | payer BC, OTHER ==
--- NOTE | 2020-09-27 14:57 | US ---
EXAMINATION TYPE: US venous doppler duplex LE BI DATE OF EXAM: 09/27/2020 2:46 PM COMPARISON: NONE CLINICAL HISTORY: 29-year-old female O88.23 Pulmonary embolism. SIDE PERFORMED: Bilateral TECHNIQUE: The lower extremity deep venous system is examined utilizing real time linear array sonog jarrell with graded compression, doppler sonography and color-flow sonography. FINDINGS: VESSELS IMAGED: Common Femoral Vein Deep Femoral Vein Greater Saphenous Vein * Femoral Vein Popliteal Vein Small Saphenous Vein * Proximal Calf Veins (* superficial vessels) [employer] notes: Patient of large body habitus. Right Leg: Negative for DVT Left Leg: Negative for DVT IMPRESSION: No evidence for DVT within the bilateral lower extremities imaged from the groin to the upper calves.
== END | disposition home or self-care (01) ==
LOC: RADUSWWP 14:15
PROVIDERS: ATTEND Internal Medicine Hematology & Oncology
DX: O88.23 Thromboembolism in the puerperium (principal)
CPT/HCPCS: 93970